=== PATIENT | female | born 1945 | race Two or more races ===

== ENCOUNTER 2019-10-19 09:22 | Emergency (ER) | payer BC ==
[~2019-10-19] VITALS: Ht 157.5 cm; Wt 64.5 kg
[~2019-10-19 09:22] MED LIST: CELE-193 PO; NEOM10DR45 OT; ONDA8TAB9 PO
[2019-10-19 09:31] VITALS: BP 166/92
--- NOTE | 2019-10-21 17:25 | NUR ---
ATTEMPTED TO REACH PT REGARDING COVID TEST RESULTS. CALLED OFFICE# [phone] YESTERDAY, NO ANSWERING SERVICE. ATTEMPTED TO CALL HOME# [phone] WITH NOANSWER AND NO VOICE MAILBOX SET UP.
== END 2019-10-19 09:57 | disposition home or self-care (01) ==
LOC: ER 09:22
DX: R05 Cough (principal); Z03.818 Encounter for observation for suspected exposure to other biological agents ruled out; R53.83 Other fatigue; R53.1 Weakness; I10 Essential (primary) hypertension; E11.9 Type 2 diabetes mellitus without complications; Z88.8 Allergy status to other drugs, medicaments and biological substances; Z79.899 Other long term (current) drug therapy
CPT/HCPCS: 36415; 99283; C9803; U0001